=== PATIENT | female | born 1960 | race Caucasian/White ===

== ENCOUNTER 2022-03-12 16:58 | Outpatient (RCR) | payer BC, SELFPAY ==
--- NOTE | 2022-03-19 06:58 | PTOPEVAL ---
Thank you for referring Akua Nichols to [facility] [place].? The patient is scheduled to be seen for therapy? __2__x/week for 8 visits. Please review, sign, date and return this plan of care JORGE LUIS. I agree with and certify that the following plan of care is medically necessary. Referring Physician Date Admitting Provider: Attending Provider: Mecca Lane, PA Referring Provider: *PT Outpatient Evaluation Start: 03/12/22 17:03 Freq: Status: Active Protocol: Document 03/12/22 17:04 [facility]LO (Rec: 03/12/22 17:31 PEDRO PABLO [id number]) Therapy Assessment Status Assessment Status Assessment Status Evaluation Evaluation Information Problem Diagnosis biceps strain, left Onset 07/28/21 Subjective Information Pt. reports that she developed Query Text:As Reported By Patient/ left arm pain in July. Family She recalls no incident. She describes per pain in the middle of the biceps. She states that pain is worsened with lifting and pulling activities. She reports that the pain has not changed or slightly worsened since it has began. She reports that pain will increase if she sleeps on her left side. She reports that she can complete all ADL 's, just with pain. She reports that her goal for therapy is to decrease her left arm pain. Prior Level of Function Activity Level (Last 3 Months) Occupation office work Hand Dominance Right Activity of Daily Living Ability Independent Indoor/Home Mobility Independent Community Mobility Independent Stairs Ability Independent Functional Cognition (Planning, Shopping Independent , Taking Medications) Cooking Yes Cleaning Yes Laundry Yes Shopping Yes Driving Yes Pain Assessment Timing of Pain Assessment Timing of Pain Assessment Pre-Treatment Pain Scale Pain Scale Used Numeric (1 - 10) Self Report Pain Assessment Left Upper Arm(s) Reported Pain Level 4 Additional Pain Comments Pt. describes pain in the proximal 1/3 of the left bicep mm. Pain Score Pain Score 4: Self Report Interventions
--- NOTE | 2022-04-21 13:42 | PTOPEVAL ---
Thank you for referring Akua Nichols to [facility] [place].? The patient is scheduled to be seen for therapy? ____x/week for ___ weeks. Please review, sign, date and return this plan of care JORGE LUIS. I agree with and certify that the following plan of care is medically necessary. Referring Physician Date Admitting Provider: Attending Provider: Mecca Lane, PA Referring Provider: *PT Outpatient Evaluation Start: 03/12/22 17:03 Freq: Status: Active Protocol: Document 04/21/22 13:19 [facility] (Rec: 04/21/22 13:42 [facility] [id number]) Therapy Assessment Status Assessment Status Assessment Status Discharge Evaluation Information Problem Diagnosis biceps strain, left Onset 07/28/21 Additional Evaluation Detail quick dash = 0% functionally declined Subjective Information patient reports her L shoulder Query Text:As Reported By Patient/ is feeling much better. she Family reports nearly no pain in the shoulder any longer. she reports she is now retired from work. she reports she did recently fall and break her L ankle. she reports she is going to need therapy eventually on the ankle, but is to hold off for now. Pain Assessment Timing of Pain Assessment Timing of Pain Assessment Assessment Pain Scale Pain Scale Used Numeric (1 - 10) Self Report Pain Assessment Left Upper Arm(s) Reported Pain Level 1 Greatest Pain Intensity 1 Pain Score Pain Score 1: Self Report Interventions Used Interventions Used By Clinicians Activity or ADL's,Dry Needling ,Education,Electrical Stimulation,Exercise,Manual Therapy Techniques,Myofascial Release,Ultrasound Upper Extremity Range of Motion General Upper Extremity Range of Motion Reason Not Measured WNL/Left,WNL/Right Upper Extremity Muscle Strength Testing General Upper Extremity Strength Gross Upper Extremity Strength Comments -right shoulder flexion 5/5 -left shoulder flexion 5/5 -right shoulder abductio 5/5 -left shoulder abduction 5/5 -right shoulder ER 5/5 -left shoulder ER 5/5 -right elbow flexion 5/5 -left elbow flexion 5/5 -right elbow extension 5/5 -left elbow extension 5/5 Palpation Ass
== END 2022-04-21 18:16 | disposition home or self-care (01) ==
LOC: CHSPT 16:58
PROVIDERS: Visit Provider Physician Assistant
DX: S46.212A Strain of muscle, fascia and tendon of other parts of biceps, left arm, initial encounter (principal)
CPT/HCPCS: 20560; 97014; 97035; 97110; 97140; 97161; G0283

== ENCOUNTER 2022-06-09 13:57 | Outpatient (RCR) | payer BC, SELFPAY ==
--- NOTE | 2022-06-09 15:18 | PTOPEVAL1 ---
Assessment and note entered by JT File, PT Evaluation Information Assessment Status Evaluation Diagnosis L fibular fracture Onset 06/04/22 Subjective Information patient reports she fractured her R fibula on 09/17. she reports she had a fibular avulsion fracture when she rolled her ankle walking into a store. she reports she was in a boot for 8 weeks. she reports she has been out of her boot since 05/18. patient reports her bone is healing well per her MD follow up on 06/04/22. she reports this past wednesday she was up on her feet a lot on wednesday. she reports her whole foot and L LE were swollen yesterday after this. Reported Pain Level Pain Score 1: Self Report Assessment PT Clinical Summary mrs. camilo presents to skilled PT services for evaluation and treatment of weakness, pain, and decreased rom in the L ankle following a fracture to the L fibula. she presents this date with with normal post fracture and boot wear tightness. she would do well to attend and participate in skilled PT services to improve her objective/funcitonal deifcits and return to prior level gait and functional activity performance. Plan of Care Interventions Electrical Stimulation,Gait Training,Hot Pack/Cold Pack,Manual Therapy,Neuro Re-education,Patient/ Caregiver Educati,Therapeutic Activities, Therapeutic Exercise PT Services Indicated Yes Treatment Frequency and 2x weekly for 12 visits Duration These treatments will address the objective and functional deficits as defined above. The patient will be advanced safely and appropriately in order for the patient to progress towards his/her prior level of function. Additional exercises will be introduced and as well as a comprehensive home exercise program upon discharge, if needed, ?to ensure carryover of functional gains achieved in the clinic. This treatment plan has been reviewed and agreement upon by the patient.
--- NOTE | 2022-08-18 07:11 | PCPTNOTE ---
mrs. camilo has been discharged from this account. she is no longer seeking services for her L ankle. as of this date, all progress towards goals will be taken from her most recent evaluation/note. ALFRED
== END 2022-06-24 18:00 | disposition home or self-care (01) ==
LOC: CHSPT 13:57
PROVIDERS: Visit Provider Physician Assistant
DX: S82.832D Other fracture of upper and lower end of left fibula, subsequent encounter for closed fracture with routine healing (principal)
CPT/HCPCS: 97014; 97110; 97140; 97161; 97530; G0283

== ENCOUNTER 2022-08-18 12:58 | Outpatient (RCR) | payer BC, SELFPAY ==
--- NOTE | 2022-08-18 14:12 | PTOPEVAL1 ---
Assessment and note entered by JT File, PT Evaluation Information Assessment Status Evaluation Diagnosis s/p R reverse TSA, R hip OA Onset 07/06/22 Subjective Information patient reports she fell on 07/06/22 and fractured the R shoulder. she reports at the time of the break she was told everything was in place and she needed no surgery. she reports by the time she returned home her break was no aligned and she had several tears in the RTC. she reports she had a reverse TSA on 07/16/22. she reports she has known blood clots post surgery that she is taking meds for. she reports she also is complicated by R hip OA. she reports she was taken out of the sling yesterday. she is on a delayed reverse TSA protocol due to the severity of her injury, and delay of repair. Reported Pain Level Pain Score 1: Self Report Assessment PT Clinical Summary mrs. camilo presents to skilled PT services roughly 4.5 weeks s/p R reverse TSA. she presents under a delayed rehab protocol and thus her ROM is limited to 90 degrees flexion and 30 degrees ER in a scapular plane. she would do well to attend skilled PT to address her objective/functional deficits and improve her strength and rom of the R shoulder. she would do well to have the R hip evaluated during her upcoming therapy visits. Plan of Care Interventions Electrical Stimulation,Gait Training,Hot Pack/Cold Pack,Manual Therapy,Neuro Re-education,Patient/ Caregiver Educati,Therapeutic Activities, Therapeutic Exercise PT Services Indicated Yes Treatment Frequency and 3x weekly for 12 visits Duration These treatments will address the objective and functional deficits as defined above. The patient will be advanced safely and appropriately in order for the patient to progress towards his/her prior level of function. Additional exercises will be introduced and as well as a comprehensive home exercise program upon discharge, if needed, ?to ensure carryover of functional gains achieved in the clinic. This treatment plan has been reviewed and agreement upon by the patient.
--- NOTE | 2022-09-23 07:18 | BUPTOPEVAL1 ---
Assessment and note entered by JT File, PT Evaluation Information Assessment Status Re-evaluation Diagnosis s/p R reverse TSA, R hip OA Onset 07/06/22 Subjective Information patient reports she continues to have mild pain in the R shoulder. she reports she is still on a 2 week regression in her protocol for shoulder replacement. she reports she continues to struggle with reaching overhead, and behind head and back. she reports she still feels the R shoulder is weak. per her protocol she is doing only PROM, AROM, and AAROM exercises with no lifting over 5lbs at the elbow and wrist. Reported Pain Level Pain Score 0,3: Self Report Assessment PT Clinical Summary mrs. camilo presents to skilled PT for her 12th skilled therapy visit post R reverse total shoulder replacement. she has been under a slwed progression of rehab (2 weeks from the protocol) per MD orders. thus she has only just begun shoulder AAROM and AROM, and has done no strengthening up to this point more than deltoid isometrics. she continues to lack R shoulder rom, strength, and functional use suitable to DC from therapy at this time. she would do well to continue skilled PT to return to her prior level functional activity performance and quality of life. Plan of Care Interventions Electrical Stimulation,Hot Pack/Cold Pack,Manual Therapy,Therapeutic Activities,Therapeutic Exercise PT Services Indicated Yes Treatment Frequency and 3x weekly for 12 more visits Duration These treatments will address the objective and functional deficits as defined above. The patient will be advanced safely and appropriately in order for the patient to progress towards his/her prior level of function. Additional exercises will be introduced and as well as a comprehensive home exercise program upon discharge, if needed, ?to ensure carryover of functional gains achieved in the clinic. This treatment plan has been reviewed and agreement upon by the patient.
== END 2022-10-26 15:59 | disposition home or self-care (01) ==
LOC: CHSPT 12:58
PROVIDERS: Visit Provider Physician Assistant
DX: Z96.611 Presence of right artificial shoulder joint (principal); M16.11 Unilateral primary osteoarthritis, right hip; M53.3 Sacrococcygeal disorders, not elsewhere classified
CPT/HCPCS: 97014; 97110; 97140; 97161; G0283

== ENCOUNTER 2024-06-21 09:28 | Outpatient (RCR) | payer BC, SELFPAY ==
--- NOTE | 2024-06-21 10:10 | PTOPEVAL1 ---
Assessment and note entered by Maciel Russell Evaluation Information Assessment Status Evaluation Diagnosis gluteal tendinitis of right buttock, SI joint pain Subjective Information Pt. reports that she has had right hip pain on/off for months. She reports that the pain has gotten worse since going on a recent vacation that required a lot of walking. She reports that her doctor noted that she had developed a tendonitis. She reports that steps, standing and walking will increase her pain. She states that she will have increased pain with rolling onto her right side. She states that she had x-ray in December. She states that she can walk for about 1 hour before having to sit. She states that her goal for therapy is to decrease her pain. Reported Pain Level Pain Score 4: Self Report Assessment PT Clinical Summary Pt. is a 63 year old female who enters the clinic with right hip pain due to gluteal tendonitis. She presents with impaired hip strength, impaired gait mechanics and pain on this date. continued skilled PT is indicated in order to improve these areas to allow the pt. to achieve improved comfort with all IADL's. Plan of Care Interventions Electrical Stimulation,Gait Training,Hot Pack/Cold Pack,Manual Therapy,Mechanical Traction,Neuro Re- education,Paraffin Bath,Therapeutic Activities, Therapeutic Exercise Other Interventions dry needling PT Services Indicated Yes Treatment Frequency and 2x/week x 8 visits Duration These treatments will address the objective and functional deficits as defined above. The patient will be advanced safely and appropriately in order for the patient to progress towards his/her prior level of function. Additional exercises will be introduced and as well as a comprehensive home exercise program upon discharge, if needed, ?to ensure carryover of functional gains achieved in the clinic. This treatment plan has been reviewed and agreement upon by the patient.
--- NOTE | 2024-06-21 10:11 | OPREHPOC ---
Outpatient Therapy Plan of Care This is a Multidisciplinary Plan of Care that may contain components documented by all disciplines (PT, OT, and ST.) PT Problem 1 PT Problem #1 Knowledge Deficit PT Goal 1 Goal / Goal Update Pt. will be independent with a HEP focusing on gluteal strength Target Visit 2 PT Problem 2 PT Problem #2 Impaired Strength PT Goal 1 Goal / Goal Update Improve right hip abduction and ER strength to 4+/ 5 to improve stability with ambulation Target Visit 8 PT Problem 3 PT Problem #3 Pain PT Goal 1 Goal / Goal Update Pt. will report pain levels at 1/10 at worst with prolonged standing activities. Target Visit 8
--- NOTE | 2024-08-09 10:54 | OPREHPOC ---
Outpatient Therapy Plan of Care This is a Multidisciplinary Plan of Care that may contain components documented by all disciplines (PT, OT, and ST.) PT Problem 1 PT Problem #1 Knowledge Deficit PT Goal 1 Goal / Goal Update Pt. will be independent with a HEP focusing on gluteal strength Target Visit 2 Progress Met PT Problem 2 PT Problem #2 Impaired Strength PT Goal 1 Goal / Goal Update Improve right hip abduction and ER strength to 4+/ 5 to improve stability with ambulation Target Visit 14 Progress Partially Met PT Problem 3 PT Problem #3 Pain PT Goal 1 Goal / Goal Update Pt. will report pain levels at 1/10 at worst with prolonged standing activities. Target Visit 14 Progress Not Met PT Problem 4 PT Problem #4 Impaired Functional Mobil PT Goal 1 Goal / Goal Update 1. LEFS to display 30% or less functional deficits Target Visit 14
--- NOTE | 2024-08-09 10:54 | PTOPREEVAL ---
Assessment and note entered by JT File, PT Evaluation Information Assessment Status Re-evaluation Diagnosis gluteal tendinitis of right buttock, SI joint pain Subjective Information patient reports she is bothered by her hip today. she reports stairs and putting on shoes and socks are the worst activities. she reports she has to pull the pant leg up to get to her foot to put on the shoes/socks. she reports she does feel a bit better since her initial evaluation, and reports she does feel better when she has the dry needling treatments Reported Pain Level Pain Score 3: Self Report Assessment PT Clinical Summary mrs. camilo presents to skilled PT services today with continued pain and symptoms in the R gluteal area. she reports her symptoms are worse today, but generally improved with dry needling. she spoke with her MD recently at a follow up who suggested she try to continue skilled PT. given her continued lack of achievement of pain and strength goals, patient would do well to continue skilled PT. in addition to progression of strength in the R hip, we will continue to work on pain reduction and tissue extensibility through modalities and dry needling. Plan of Care Interventions Electrical Stimulation,Gait Training,Hot Pack/Cold Pack,Manual Therapy,Mechanical Traction,Neuro Re- education,Paraffin Bath,Therapeutic Activities, Therapeutic Exercise Other Interventions dry needling PT Services Indicated Yes Treatment Frequency and continue skilled PT 1x weekly for 2 more visits Duration These treatments will address the objective and functional deficits as defined above. The patient will be advanced safely and appropriately in order for the patient to progress towards his/her prior level of function. Additional exercises will be introduced and as well as a comprehensive home exercise program upon discharge, if needed, ?to ensure carryover of functional gains achieved in the clinic. This treatment plan has been reviewed and agreement upon by the patient.
== END 2024-08-23 09:30 | disposition home or self-care (01) ==
LOC: CHSPT 09:28
PROVIDERS: Visit Provider Physician Assistant
DX: M76.01 Gluteal tendinitis, right hip (principal); M53.3 Sacrococcygeal disorders, not elsewhere classified; M17.11 Unilateral primary osteoarthritis, right knee
CPT/HCPCS: 20560; 97014; 97110; 97140; 97161; G0283